=== PATIENT | female | born 1960 | race American Indian/Alaskan Native ===

== ENCOUNTER 2016-08-17 20:32 | Emergency (ER) | payer SELFPAY ==
[2016-08-17 23:46] LABS: Basophils % (Auto) 0.5 % (0.0-1.8); Eosinophils % (Auto) 0.3 % (0.0-4.3); Hematocrit 40.6 % (30.3-42.9); Mean Corpuscular HGB Conc 32 % (30-34); Mean Corpuscular Hemoglobin 27 pg (28-32); Mean Corpuscular Volume 84 fl (79-97); Platelet Count 197 K/mm3 (140-440); Red Blood Count 4.81 M/mm3 (3.65-5.03); Red Cell Distribution Width 16.3 % (13.2-15.2); White Blood Count 6.9 K/mm3 (4.5-11.0)
[2016-08-18 00:05] LABS: Anion Gap 22 mmol/L; BUN/Creatinine Ratio 13.33; Blood Urea Nitrogen 8 mg/dL (7-17); Calcium 9.2 mg/dL (8.4-10.2); Carbon Dioxide 21 mmol/L (22-30); Chloride 95.7 mmol/L (98-107); Glucose 106 mg/dL (65-100); Potassium 3.7 mmol/L (3.6-5.0); Sodium 135 mmol/L (137-145)
[2016-08-18 00:25] LABS: Bacteria,Urine 1+ /HPF (Negative); Bilirubin,Urine NEG (Negative); Blood,Urine MOD (Negative); Ketones,Urine TR mg/dL (Negative); Leukocyte Esterase,Urine NEG (Negative); Mucus,Urine 1+ /HPF; Nitrite,Urine NEG (Negative); Urobilinogen,Urine < 2.0 mg/dL (<2.0)
[2016-08-18] MEDS ORDERED: NORCO 5/325 PO ONE (02:03)
--- NOTE | 2016-08-18 02:04 | Emergency Department Report ---
ED Fall HPI - General Chief Complaint: Fall Stated Complaint: FALL/RT SIDE PAIN Time Seen by Provider: 08/18/16 01:55 Source: patient, family Mode of arrival: Wheelchair - History of Present Illness Initial Comments: This is a 55-year-old female who reports increased fatigue today. She states that as a baseline she has urgency and incontinence issues with urine. She states that she was trying to make it quickly to the toilet today. She was able to get down on the toilet and slipped off and struck her right knee hard. She didn't ask for family to bring her to the ED for further evaluation due to this. She does report fever at home as well. Occasional cough is reported as well just in no sore throat. She does have body aches. She describes her fatigue starting actually 2 days ago. Worse with activity. Improved with rest. Associated Symptoms: denies: headache, numbness, abdominal pain - Related Data Previous Rx's Medication Instructions Recorded Last Taken Type Aspirin [Aspirin BABY CHEW TAB] 81 mg PO QDAY #30 tab.chew 09/17/15 Unknown Rx Carvedilol [Coreg] 3.125 mg PO BID #60 tablet 09/17/15 Unknown Rx Lisinopril [Zestril TAB] 2.5 mg PO QDAY #30 tablet 09/17/15 Unknown Rx HYDROcodone/APAP 5-325 [[place] 2 each PO Q6HR PRN #30 tablet 08/18/16 Unknown Rx 5/325] Oseltamivir [Tamiflu] 75 mg PO BID #10 capsule 08/18/16 Unknown Rx Allergies Allergy/AdvReac Type Severity Reaction Status Date / Time No Known Allergies Allergy Verified 02/08/15 16:03 ED Review of Systems ROS: Stated complaint: FALL/RT SIDE PAIN Other details as noted in HPI Comment: All other systems reviewed and negative Constitutional: chills, fever, weakness Eyes: denies: eye pain, eye discharge, vision change ENT: denies: ear pain, throat pain Respiratory: cough. denies: shortness of breath, wheezing Cardiovascular: denies: chest pain, palpitations Endocrine: no symptoms reported Gastrointestinal: denies: abdominal pain, nausea, diarrhea Genitourinary: urgency. denies: dysuria, discharge Musculoskeletal: arthralgia (right knee). denies: back pain, joint swelling Skin: denies: rash, lesions Neurological: denies: headache, weakness, paresthesias Psychiatric: denies: anxiety, depression Hematological/Lymphatic: denies: easy bleeding, easy bruising ED Past Medical Hx - Past Medical History Previous Medical History?: Yes Hx Hypertension: Yes Hx Congestive Heart Failure: No Hx Diabetes: No Hx GERD: Yes Hx Headaches / Migraines: Yes Hx Asthma: No Hx COPD: No Hx HIV: No Additional medical history: ANEMIA,STOMACH ULCER,FIBROID,DIVERTICULITIS. Obesity - Surgical History Hx Open Heart Surgery: Yes (1972 coarctation of aorta) Hx Cholecystectomy: Yes Additional Surgical History: TUBAL LIGATION. TONSILLECTOMY - Social History Smoking Status: Never Smoker Substance Use Type: None - Medications Home Medications: Home Medications Medication Instructions Recorded Confirmed Last Taken Type Aspirin [Aspirin BABY CHEW TAB] 81 mg PO QDAY #30 tab.chew 09/17/15 Unknown Rx Carvedilol [Coreg] 3.125 mg PO BID #60 tablet 09/17/15 Unknown Rx Lisinopril [Zestril TAB] 2.5 mg PO QDAY #30 tablet 09/17/15 Unknown Rx HYDROcodone/APAP 5-325 [[place] 2 each PO Q6HR PRN #30 tablet 08/18/16 Unknown Rx 5/325] Oseltamivir [Tamiflu] 75 mg PO BID #10 capsule 08/18/16 Unknown Rx ED Physical Exam - General Limitations: No Limitations General appearance: alert, in distress (due to fatigue.) - Head Head exam: Present: atraumatic, normocephalic - Eye Eye exam: Present: normal appearance, EOMI. Absent: scleral icterus - ENT ENT exam: Present: normal exam, normal orophraynx, mucous membranes moist - Neck Neck exam: Present: normal inspection. Absent: tenderness, meningismus, lymphadenopathy - Respiratory Respiratory exam: Present: rales (bibasilarly with some end expiratory sounds as well.), decreased breath sounds (mild). Absent: respiratory distress - Cardiovascular Cardiovascular Exam: Present: normal rhythm, tachycardia. Absent: systolic murmur, diastolic murmur, rubs, gallop - GI/Abdominal GI/Abdominal exam: Present: soft, normal bowel sounds. Absent: tenderness, guarding, rebound - Extremities Exam Extremities exam: Present: other (right knee with mild tenderness in the anterior aspect just below the patella. No laxity is appreciated. Normal range of motion is noted. Equal distal pedal pulses bilaterally.). Absent: pedal edema, calf tenderness - Back Exam Back exam: Present: normal inspection - Neurological Exam Neurological exam: Present: alert, oriented X3, abnormal gait (antalgic gait due to right knee pain.) - Psychiatric Psychiatric exam: Present: normal affect, normal mood - Skin Skin exam: Present: warm, dry, intact, normal color. Absent: rash ED Course Vital Signs 08/17/16 08/18/16 08/18/16 22:00 01:09 01:10 Temperature 100.9 F H Pulse Rate 104 H Respiratory 20 Rate Blood Pressure 135/65 Blood Pressure 154/81 [Right] O2 Sat by Pulse 97 95 96 Oximetry 08/18/16 08/18/16 08/18/16 01:15 01:18 01:20 Temperature Pulse Rate 78 Respiratory 20 Rate Blood Pressure 128/71 128/71 Blood Pressure [Right] O2 Sat by Pulse 97 93 Oximetry 08/18/16 08/18/16 08/18/16 01:26 01:30 01:36 Temperature Pulse Rate Respiratory Rate Blood Pressure 128/71 151/82 151/82 Blood Pressure [Right] O2 Sat by Pulse 94 97 95 Oximetry 08/18/16 08/18/16 08/18/16 01:40 01:45 01:50 Temperature Pulse Rate Respiratory Rate Blood Pressure 151/82 158/78 158/78 Blood Pressure [Right] O2 Sat by Pulse 95 94 96 Oximetry 08/18/16 08/18/16 08/18/16 01:56 02:00 02:06 Temperature Pulse Rate Respiratory Rate Blood Pressure 151/82 150/75 150/75 Blood Pressure [Right] O2 Sat by Pulse 97 97 95 Oximetry 08/18/16 08/18/16 08/18/16 02:10 02:15 02:20 Temperature Pulse Rate Respiratory Rate Blood Pressure 150/75 145/79 145/79 Blood Pressure [Right] O2 Sat by Pulse 93 91 95 Oximetry 08/18/16 08/18/16 08/18/16 02:26 02:30 02:36 Temperature Pulse Rate Respiratory Rate Blood Pressure 150/75 144/81 144/81 Blood Pressure [Right] O2 Sat by Pulse 92 87 95 Oximetry 08/18/16 08/18/16 08/18/16 02:40 02:45 02:50 Temperature Pulse Rate Respiratory Rate Blood Pressure 144/81 145/85 145/85 Blood Pressure [Right] O2 Sat by Pulse 92 91 93 Oximetry 08/18/16 08/18/16 08/18/16 02:56 03:00 03:06 Temperature Pulse Rate 63 Respiratory 20 Rate Blood Pressure 145/79 145/79 Blood Pressure [Right] O2 Sat by Pulse 93 93 100 Oximetry - Reevaluation(s) Reevaluation #1: 08/18/16 07:04 2 issues. First issue regarding the knee. X-ray is negative for acute pathology. Presentation seems consistent with contusion. I do not expect sprain or strain is contributed to this. Patient given routine instructions regarding contused tissue. In regards to the fever and fatigue, labs were performed. The influenza swab did come back positive. This is what I anticipated. Patient may have a touch of influenza pneumonia as well. I did not obtain an x-ray given that her O2 saturation was very good. I do suspect viral much more likely than alternative etiology. I do believe that influenza is causing her weakness as well. I did encourage her to convalesce as well as push fluids and stay on top of antipyretics. ED Medical Decision Making - Lab Data Result diagrams: 08/17/16 22:51 08/17/16 22:51 Critical care attestation.: If time is entered above; I have spent that time in minutes in the direct care of this critically ill patient, excluding procedure time. ED Disposition Clinical Impression: Influenza Contusion, knee Qualifiers: Encounter type: initial encounter Laterality: right Qualified Code(s): S80.01XA - Contusion of right knee, initial encounter Disposition: DISCHARGED TO HOME OR SELFCARE Is pt being admited?: No Does the pt Need Aspirin: No Condition: Stable Instructions: Influenza (ED) Additional Instructions: Drink plenty of fluids. Rest. Prescriptions: HYDROcodone/APAP 5-325 [[place] 5/325] 2 each PO Q6HR PRN #30 tablet PRN Reason: Pain Oseltamivir [Tamiflu] 75 mg PO BID #10 capsule Referrals: PRIMARY CARE, [Primary Care Provider] - 3-5 Days Time of Disposition: 03:47
[2016-08-18 03:06] VITALS: BP 145/79
[2016-08-18] MEDS ORDERED: TAMIFLU PO ONE (03:45)
--- NOTE | 2016-08-18 07:50 | XRay Report ---
Right knee: Pain following fall. He is alert now he is on may be fecal matter colon to There are bilateral periarticular spurs. There is significant narrowing of the medial joint compartment. The joint is aligned. Articular margins are smooth. The bones are well-mineralized. No swelling or effusion. Impression: Degenerative changes. No acute findings.
== END 2016-08-18 04:01 | disposition home or self-care (01) ==
LOC: ED 20:32
DX: S80.01XA Contusion of right knee, initial encounter (principal); J11.1 Influenza due to unidentified influenza virus with other respiratory manifestations; I10 Essential (primary) hypertension; G43.909 Migraine, unspecified, not intractable, without status migrainosus; D64.9 Anemia, unspecified; K21.9 Gastro-esophageal reflux disease without esophagitis; E66.9 Obesity, unspecified; Z79.82 Long term (current) use of aspirin; W18.30XA Fall on same level, unspecified, initial encounter; Y93.89 Activity, other specified; Y99.8 Other external cause status; Y92.002 Bathroom of unspecified non-institutional (private) residence as the place of occurrence of the external cause
CPT/HCPCS: 36415; 80048; 81001; 84703; 85025; 87040; 87400; 99284

== ENCOUNTER 2016-09-03 17:38 | Inpatient (IN) | payer SELFPAY ==
[2016-09-03] MEDS ORDERED: TYLENOL PO ONE (18:19)
[2016-09-03 19:02] LABS: Bacteria,Urine 1+ /HPF (Negative); Bilirubin,Urine NEG (Negative); Blood,Urine MOD (Negative); Ketones,Urine TR mg/dL (Negative); Leukocyte Esterase,Urine LG (Negative); Mucus,Urine 1+ /HPF; Nitrite,Urine NEG (Negative); WBC,Urine > 182.0 /HPF (0.0-6.0)
[2016-09-03 19:07] LABS: Basophils % (Auto) 0.6 % (0.0-1.8); Eosinophils % (Auto) 0.2 % (0.0-4.3); Hematocrit 39.7 % (30.3-42.9); Hemoglobin 12.6 gm/dl (10.1-14.3); Mean Corpuscular HGB Conc 32 % (30-34); Mean Corpuscular Hemoglobin 27 pg (28-32); Mean Corpuscular Volume 85 fl (79-97); Platelet Count 310 K/mm3 (140-440); Red Blood Count 4.66 M/mm3 (3.65-5.03); Red Cell Distribution Width 15.8 % (13.2-15.2)
[2016-09-03 19:28] LABS: Anion Gap 21 mmol/L; Blood Urea Nitrogen 7 mg/dL (7-17); Calcium 9.3 mg/dL (8.4-10.2); Carbon Dioxide 20 mmol/L (22-30); Chloride 100.6 mmol/L (98-107); Glucose 146 mg/dL (65-100); Potassium 3.9 mmol/L (3.6-5.0); Sodium 138 mmol/L (137-145)
[2016-09-03] MEDS ORDERED: SUBLIMAZE IV ONE ×2 (20:44→21:00)
[2016-09-03] MEDS ORDERED: ZOFRAN IV ONE (20:44)
[2016-09-03] MEDS ORDERED: NACL 0.9% 1000 ML 1,000 ML IV ONE (20:44)
[2016-09-03] MEDS ORDERED: ROCEPHIN/NS 1 GM/50 ML 1 GM/50 ML BAG IV ONE (20:44)
[2016-09-03] MEDS ORDERED: BABY ASPIRIN PO ONE (20:50)
--- NOTE | 2016-09-03 20:50 | Emergency Department Report ---
HPI - General Chief Complaint: Chest Pain Time Seen by Provider: 09/03/16 19:56 - HPI HPI: The patient is a 55-year-old female with a history of CHF, who presents for evaluation of chest pain. The patient reports 1 day of constant left-sided chest pain, pressure-like in quality, currently 10/10 in severity, and associated with suprapubic abdominal pain of same duration. She states that her abdominal pain has been moderate to severe, cramping in quality, also constant the past 2 days, and associated with dysuria and multiple episodes of nonbilious vomiting. The patient denies fever, cough, dyspnea, hemoptysis, diarrhea, present discharge, vaginal bleeding, unilateral leg swelling, hormone use, recent immobilization, history of DVT or PE, recent cancer. ED Past Medical Hx - Past Medical History Previous Medical History?: Yes Hx Hypertension: Yes Hx Congestive Heart Failure: No Hx Diabetes: No Hx GERD: Yes Hx Headaches / Migraines: Yes Hx Asthma: No Hx COPD: No Hx HIV: No Additional medical history: ANEMIA,STOMACH ULCER,FIBROID,DIVERTICULITIS. Obesity - Surgical History Past Surgical History?: Yes Hx Open Heart Surgery: Yes (1972 coarctation of aorta) Hx Cholecystectomy: Yes Additional Surgical History: TUBAL LIGATION. TONSILLECTOMY - Social History Smoking Status: Never Smoker Substance Use Type: None - Medications Home Medications: Home Medications Medication Instructions Recorded Confirmed Last Taken Type Aspirin [Aspirin BABY CHEW TAB] 81 mg PO QDAY #30 tab.chew 09/17/15 Unknown Rx Carvedilol [Coreg] 3.125 mg PO BID #60 tablet 09/17/15 Unknown Rx Lisinopril [Zestril TAB] 2.5 mg PO QDAY #30 tablet 09/17/15 Unknown Rx HYDROcodone/APAP 5-325 [[place] 2 each PO Q6HR PRN #30 tablet 08/18/16 Unknown Rx 5/325] Oseltamivir [Tamiflu] 75 mg PO BID #10 capsule 08/18/16 Unknown Rx ED Review of Systems ROS: Stated complaint: CHEST PAIN/VOMITING/CHILLS Other details as noted in HPI Constitutional: denies: fever ENT: denies: throat or neck pain Respiratory: denies: cough, shortness of breath Cardiovascular: reports chest pain Endocrine: denies unexplained weight loss or gain Gastrointestinal: reports abdominal pain, nausea Genitourinary: denies: dysuria Musculoskeletal: denies: leg swelling Skin: denies: rash Neurological: denies: headache Hematological/Lymphatic: denies: easy bleeding or easy bruising Psych: denies sadness or hopelessness Physical Exam - Physical Exam Vital Signs: Vital Signs 09/03/16 09/03/16 09/03/16 18:04 20:00 20:08 Temperature 102.3 F H Pulse Rate 125 H 98 H Respiratory 24 23 16 Rate Blood Pressure 130/57 O2 Sat by Pulse 95 97 Oximetry Physical Exam: General: well-nourished, well-developed, no acute distress Head: Normocephalic, atraumatic Eyes: normal sclera ENT: Mucous membranes are pale and dry Neck: No neck stiffness, no cervical adenopathy Respiratory: Breath sounds equal bilaterally, no wheezing, rales, or rhonchi Cardio: S1 and S2 present, no murmurs, rubs, gallops, capillary refill is delayed Abdomen: Normoactive bowel sounds, soft abdomen, suprapubic tenderness to palpation present, no rigidity, no guarding or rebound tenderness Chest WALL/Back: No tenderness to palpation of the chest wall, no CVA tenderness with percussion Musc: No pitting edema Skin: No rash Neuro: no facial drooping, normal speech Psych: Normal affect ED Course Vital Signs 09/03/16 09/03/16 09/03/16 18:04 20:00 20:08 Temperature 102.3 F H Pulse Rate 125 H 98 H Respiratory 24 23 16 Rate Blood Pressure 130/57 O2 Sat by Pulse 95 97 Oximetry ED Medical Decision Making - Lab Data Result diagrams: 09/03/16 18:38 09/03/16 18:38 - Medical Decision Making The patient was seen and examined by myself. The patient is placed on a psychologist counseling and continuous pulse ox. On initial evaluation, the patient was found to be in no distress, although with elevated temperature of 102. The patient is given Tylenol for her fever and IV fentanyl for her pain. EKG was negative for findings suggestive of acute cardiac infarct. The patient is given an aspirin and a nitroglycerin tablet. Labs and imaging are obtained. Chest x-ray is negative for pneumothorax, focal consolidation, pulmonary vascular congestion, pleural effusion, or other obvious acute cardiopulmonary disease process. Lab results reveal significantly elevated urine WBC 182, positive leukocyte esterase, and elevated serum WBC of 14. Troponin level was negative. As the patient is febrile with WBC of 14, and source of infection, the patient meets criteria for sepsis. The patient is given IV Rocephin for treatment of her urosepsis. The patient was reevaluated and reported that their symptoms were improved. As the patient is septic she'll be admitted for continued IV antibiotic and close monitoring, and also for serial troponins and potential cardiology evaluation of her chest pain. The on-call hospitalist service was contacted. They agreed to admit the patient for further treatment and close monitoring. The ED admit order was placed. The patient was admitted in guarded condition. Critical care attestation.: If time is entered above; I have spent that time in minutes in the direct care of this critically ill patient, excluding procedure time. ED Disposition Clinical Impression: Acute chest pain, Acute UTI (urinary tract infection), Dehydration, Acute suprapubic pain Sepsis Qualifiers: Sepsis type: sepsis due to unspecified organism Qualified Code(s): A41.9 - Sepsis, unspecified organism Disposition: OP ADMITTED IP TO THIS HOSP Is pt being admited?: Yes Does the pt Need Aspirin: Yes Condition: Serious Referrals: PRIMARY CARE, [Primary Care Provider] - 3-5 Days Time of Disposition: 20:48
[2016-09-03] MEDS ORDERED: PROTONIX IV ONE (21:45)
[2016-09-03] MEDS ORDERED: ZOFRAN IV PRN (22:53)
[2016-09-03] MEDS ORDERED: DULCOLAX PR PRN (22:53)
[2016-09-03] MEDS ORDERED: MILK OF MAGNESIA PO PRN (22:53)
--- NOTE | 2016-09-03 23:43 | History and Physical Report ---
History of Present Illness Date of examination: 09/03/16 Chief complaint: Abdominal pain chest pain and burning urination for 2 days History of present illness: Mrs. Moon is a 55-year-old AA female with a history of HTN, open heart surgery for coarctation of the aorta , presents for evaluation of chest pain. The patient reports constant left-sided chest pain, pressure-like in quality, currently 10/10 in severity, and associated with suprapubic abdominal pain of same duration. She states that her abdominal pain has been moderate to severe, cramping in quality, also constant the past 2 days, and associated with dysuria and multiple episodes of nonbilious vomiting. The patient also c/o of fever and chills, but denies cough, dyspnea, hemoptysis. She was noted to have significant urinary tract infection along with the fever and tachycardia and is admitted for possible urosepsis Past History Past Medical History: hypertension Past Surgical History: tonsillectomy, Other (coarctation of aorta, tubal ligation) Social history: no significant social history Family history: diabetes, hypertension Medications and Allergies Allergies Allergy/AdvReac Type Severity Reaction Status Date / Time No Known Allergies Allergy Verified 02/08/15 16:03 Home Medications Medication Instructions Recorded Confirmed Last Taken Type Aspirin [Aspirin BABY CHEW TAB] 81 mg PO QDAY #30 tab.chew 09/17/15 Unknown Rx Carvedilol [Coreg] 3.125 mg PO BID #60 tablet 09/17/15 Unknown Rx Lisinopril [Zestril TAB] 2.5 mg PO QDAY #30 tablet 09/17/15 Unknown Rx HYDROcodone/APAP 5-325 [[place] 2 each PO Q6HR PRN #30 tablet 08/18/16 Unknown Rx 5/325] Oseltamivir [Tamiflu] 75 mg PO BID #10 capsule 08/18/16 Unknown Rx Active Meds: Active Medications Acetaminophen (Tylenol) 650 mg PO Q4H PRN PRN Reason: Pain MILD(1-3)/Fever >100.5/POLLARD Acetaminophen/Hydrocodone Bitart ([place] 5/325) 1 each PO Q6H PRN PRN Reason: Pain, Moderate (4-6) Bisacodyl (Dulcolax) 10 mg [place] QDAY PRN PRN Reason: Constipation unrelieved by MOM Carvedilol (Coreg) 3.125 mg PO BID [facility] Heparin Sodium (Porcine) (Heparin) 5,000 unit SUB-Q Q8HR [facility] Ceftriaxone Sodium (Rocephin/Ns 1 Gm/50 Ml) 1 gm in 50 mls @ 100 mls/hr IV Q24HR [place] PRN Reason: Protocol Lisinopril (Zestril) 2.5 mg PO QDAY [facility] Magnesium Hydroxide (Milk Of Magnesia) 30 ml PO Q4H PRN PRN Reason: Constipation Ondansetron HCl (Zofran) 4 mg IV Q8H PRN PRN Reason: N/V unrelieved by Reglan Pantoprazole Sodium (Protonix) 40 mg PO DAILY [facility] Review of Systems Constitutional: fever, chills, no weight loss, no fatigue, no weakness Ears, nose, mouth and throat: no ear pain, no ear discharge, no sore throat, no headache Cardiovascular: chest pain (intermittent and sharp but doesn't aching pain, localized nonexertional), high blood pressure, no orthopnea, no palpitations, no syncope, no shortness of breath Respiratory: no cough, no shortness of breath Gastrointestinal: abdominal pain (in the mid and lower abdomen), vomiting, no melena Genitourinary Female: dysuria, urinary frequency Rectal: no pain Musculoskeletal: no neck pain Integumentary: no rash Neurological: no seizures, no syncope, no headaches Psychiatric: no anxiety, no depression Endocrine: no excessive thirst, no polyuria, no nocturia Exam - Constitutional Vitals: Temp Pulse Resp BP Pulse Ox 102.3 F H 98 H 21 156/65 98 09/03/16 18:04 09/03/16 23:01 09/03/16 23:01 09/03/16 23:01 09/03/16 23:01 General appearance: Present: no acute distress, well-nourished, obese - EENT Eyes: Present: PERRL, EOM intact ENT: hearing intact, clear oral mucosa, no thrush - Neck Neck: Present: supple, normal ROM. Absent: masses or JVD - Respiratory Respiratory effort: normal Respiratory: bilateral: CTA, diminished - Cardiovascular Rhythm: regular Heart Sounds: Present: S1 & S2 - Extremities Extremities: No edema - Abdominal General gastrointestinal: Present: soft, tender (in the lower abdomen no guarding or rigidity), non-distended. Absent: rigid, hepatomegaly, splenomegaly - Rectal Rectal Exam: deferred - Integumentary Integumentary: Present: clear - Musculoskeletal Musculoskeletal: strength equal bilaterally - Psychiatric Psychiatric: appropriate mood/affect - Neurologic Neurologic: no focal deficits, moves all extremities Results - Labs CBC & Chem 7: 09/03/16 18:38 09/03/16 18:38 Labs: Abnormal lab results 09/03/16 09/03/16 09/03/16 Range/Units 18:15 18:38 18:38 WBC 14.0 H (4.5-11.0) K/mm3 MCH 27 L (28-32) pg RDW 15.8 H (13.2-15.2) % Lymph % (Auto) 7.1 L (13.4-35.0) % [place] % (Auto) 9.8 H (0.0-7.3) % Lymph # 1.0 L (1.2-5.4) K/mm3 [place] # 1.4 H (0.0-0.8) K/mm3 Seg Neutrophils % 82.3 H (40.0-70.0) % Seg Neutrophils # 11.6 H (1.8-7.7) K/mm3 Carbon Dioxide 20 L (22-30) mmol/L Glucose 146 H (65-100) mg/dL Urine WBC (Auto) > 182.0 H (0.0-6.0) /HPF Assessment and Plan - Patient Problems (1) Sepsis Current Visit: Yes Status: Acute Qualifiers: Sepsis type: sepsis due to unspecified organism Qualified Code(s): A41.9 - Sepsis, unspecified organism Plan to address problem: Probable sepsis based on leukocytosis or fever tachycardia and UTI with microhematuria Urine and blood cultures were obtained and patient was started on antibiotic in the emergency department Will continue ceftriaxone until cultures results are obtained Lactic acid level was normal (2) Hyperglycemia Current Visit: Yes Status: Acute Plan to address problem: Monitor blood sugars for now (3) Acute UTI (urinary tract infection) Current Visit: Yes Status: Acute Plan to address problem: Ceftriaxone intravenously Await urine culture results (4) Acute chest pain Current Visit: Yes Status: Acute Plan to address problem: EKG shows sinus rhythm with no acute changes Troponin 2 sets were normal Cardiology consult (5) Obesity, Class III, BMI 40-49.9 (morbid obesity) Current Visit: No Status: Acute Plan to address problem: Nutrition counseling and weight loss (6) Hypertension Current Visit: No Status: Chronic Qualifiers: Hypertension type: essential hypertension Qualified Code(s): I10 - Essential (primary) hypertension Plan to address problem: Continue home medications
[2016-09-04] MEDS: TYLENOL PO PRN ×2 (00:13→23:00)
[2016-09-04 06:02] LABS: Basophils % (Auto) 0.3 % (0.0-1.8); Hematocrit 36.4 % (30.3-42.9); Hemoglobin 11.4 gm/dl (10.1-14.3); Mean Corpuscular HGB Conc 31 % (30-34); Mean Corpuscular Hemoglobin 27 pg (28-32); Mean Corpuscular Volume 86 fl (79-97); Platelet Count 270 K/mm3 (140-440); Red Blood Count 4.22 M/mm3 (3.65-5.03); Red Cell Distribution Width 15.8 % (13.2-15.2); White Blood Count 14.9 K/mm3 (4.5-11.0)
[2016-09-04] MEDS: HEPARIN SUB-Q SCH ×3 (06:04→21:58)
[2016-09-04 06:16] LABS: Blood Urea Nitrogen 7 mg/dL (7-17); Calcium 8.8 mg/dL (8.4-10.2); Carbon Dioxide 23 mmol/L (22-30); Glucose 132 mg/dL (65-100); Sodium 143 mmol/L (137-145)
[2016-09-04 06:17] LABS: Anion Gap 18 mmol/L; Chloride 105.3 mmol/L (98-107); Potassium 3.7 mmol/L (3.6-5.0)
--- NOTE | 2016-09-04 09:29 | XRay Report ---
Chest 2 views: Compared to 09/14/15. History: Coughing up brown sputum chest pain. Findings: Normal cardiomediastinal silhouette. Trachea is midline. No consolidation, pneumothorax or pleural effusion. Impression: No acute cardiopulmonary findings.
--- NOTE | 2016-09-04 09:43 | Consultation ---
History of Present Illness Consult date: 09/04/16 History of present illness: Mrs. Moon is a 55-year-old AA female with a history of HTN, open heart surgery for coarctation of the aorta , presents for evaluation of chest pain. The patient reports constant left-sided chest pain, pressure-like in quality, coming and going and associated with suprapubic abdominal pain of same duration. Patient denies any SOB, peripheral edema, orthopnea, pnd, palpitations , dizziness or syncope. Past History Past Medical History: hypertension Past Surgical History: tonsillectomy, Other (coarctation of aorta, tubal ligation) Social history: no significant social history Family history: diabetes, hypertension Medications and Allergies Allergies Allergy/AdvReac Type Severity Reaction Status Date / Time No Known Allergies Allergy Verified 02/08/15 16:03 Home Medications Medication Instructions Recorded Confirmed Last Taken Type Aspirin [Aspirin BABY CHEW TAB] 81 mg PO QDAY #30 tab.chew 09/17/15 Unknown Rx Carvedilol [Coreg] 3.125 mg PO BID #60 tablet 09/17/15 Unknown Rx Lisinopril [Zestril TAB] 2.5 mg PO QDAY #30 tablet 09/17/15 Unknown Rx HYDROcodone/APAP 5-325 [[place] 2 each PO Q6HR PRN #30 tablet 08/18/16 Unknown Rx 5/325] Oseltamivir [Tamiflu] 75 mg PO BID #10 capsule 08/18/16 Unknown Rx Ferrous Sulfate [Feosol] 325 mg PO QDAY 09/04/16 09/04/16 Unknown History Active Meds: Active Medications Acetaminophen (Tylenol) 650 mg PO Q4H PRN PRN Reason: Pain MILD(1-3)/Fever >100.5/POLLARD Last Admin: 09/04/16 00:13 Dose: 650 mg Acetaminophen/Hydrocodone Bitart ([place] 5/325) 1 each PO Q6H PRN PRN Reason: Pain, Moderate (4-6) Bisacodyl (Dulcolax) 10 mg [place] QDAY PRN PRN Reason: Constipation unrelieved by MOM Carvedilol (Coreg) 3.125 mg PO BID ARNOLD Heparin Sodium (Porcine) (Heparin) 5,000 unit SUB-Q Q8HR ARNOLD Last Admin: 09/04/16 06:04 Dose: 5,000 unit Ceftriaxone Sodium (Rocephin/Ns 1 Gm/50 Ml) 1 gm in 50 mls @ 100 mls/hr IV Q24HR ARNOLD PRN Reason: Protocol Lisinopril (Zestril) 2.5 mg PO QDAY [facility] Magnesium Hydroxide (Milk Of Magnesia) 30 ml PO Q4H PRN PRN Reason: Constipation Ondansetron HCl (Zofran) 4 mg IV Q8H PRN PRN Reason: N/V unrelieved by Chani Last Admin: 09/04/16 00:14 Dose: 4 mg Pantoprazole Sodium (Protonix) 40 mg PO DAILY [facility] Physical Examination Vital Signs Temp Pulse Resp BP Pulse Ox 102.3 F H 125 H 24 130/57 95 09/03/16 18:04 09/03/16 18:04 09/03/16 18:04 09/03/16 18:04 09/03/16 18:04 Results 09/04/16 05:26 09/04/16 05:26 CBC 09/04/16 Range/Units 05:26 WBC 14.9 H (4.5-11.0) K/mm3 RBC 4.22 (3.65-5.03) M/mm3 Hgb 11.4 (10.1-14.3) gm/dl Hct 36.4 (30.3-42.9) % Plt Count 270 (140-440) K/mm3 Lymph # 1.0 L (1.2-5.4) K/mm3 Leon # 1.7 H (0.0-0.8) K/mm3 Eos # 0.0 (0.0-0.4) K/mm3 Baso # 0.0 (0.0-0.1) K/mm3 Comprehensive Metabolic Panel 09/04/16 Range/Units 05:26 Sodium 143 (137-145) mmol/L Potassium 3.7 (3.6-5.0) mmol/L Chloride 105.3 (98-107) mmol/L Carbon Dioxide 23 (22-30) mmol/L BUN 7 (7-17) mg/dL Creatinine 0.7 (0.7-1.2) mg/dL Glucose 132 H (65-100) mg/dL Calcium 8.8 (8.4-10.2) mg/dL Assessment and Plan (1) Sepsis - Patient has leukocytosis and fever with tachycardia. UTI present. Urine and blood cultures pending. On abx. Management per primary. (2) Acute UTI (urinary tract infection) - on abx. Management per primary (3) Acute chest pain - atypical symptoms. CV risk factors include HTN. EKG shows normal sinus rhythm with nonspecific STTW changes. troponin negative. Check echo. Recommend stress test when infection resolved. (4) Hypertension - continue current therapy
[2016-09-04] MEDS: ZESTRIL PO SCH (09:59)
[2016-09-04] MEDS: PROTONIX PO SCH (10:01)
[2016-09-04] MEDS: COREG PO SCH ×2 (10:01→23:01)
[2016-09-04] MEDS: ROCEPHIN/NS 1 GM/50 ML 1 GM/50 ML BAG IV SCH (10:03)
--- NOTE | 2016-09-04 11:25 | Progress Note ---
Assessment and Plan Assessment and plan: Sepsis. We will continue to follow urine and blood cultures. Trend lactic acid levels. Continue IV antibiotics. UTI. Continuing IV antibiotics and follow-up urine cultures. Acute chest pain. Continue to follow cardiac isoenzymes. Cardiology following. Cardiology recommended stress test once sepsis has resolved. Follow -up echocardiogram. Obesity. Continue nutrition counseling and weight loss. Hypertension. Resume antihypertensive medications. History Interval history: No new issues overnight. Hospitalist Physical - Constitutional Vitals: Temp Pulse Resp BP Pulse Ox 98.5 F 72 18 125/58 100 09/04/16 08:02 09/04/16 08:02 09/04/16 08:02 09/04/16 08:02 09/04/16 08:02 General appearance: Present: no acute distress, well-nourished, obese - EENT Eyes: Present: PERRL, EOM intact ENT: hearing intact, clear oral mucosa, dentition normal - Neck Neck: Present: supple, normal ROM - Respiratory Respiratory effort: normal Respiratory: bilateral: CTA - Cardiovascular Rhythm: regular Heart Sounds: Present: S1 & S2. Absent: gallop, rub - Extremities Extremities: no ischemia, No edema, Full ROM - Abdominal General gastrointestinal: soft, non-tender, non-distended, normal bowel sounds - Integumentary Integumentary: Present: clear, warm, dry - Neurologic Neurologic: CNII-XII intact, moves all extremities Results - Labs CBC & Chem 7: 09/04/16 05:26 09/04/16 05:26 Labs: Laboratory Last Values WBC 14.9 K/mm3 (4.5-11.0) H 09/04/16 05:26 RBC 4.22 M/mm3 (3.65-5.03) 09/04/16 05:26 Hgb 11.4 gm/dl (10.1-14.3) 09/04/16 05:26 Hct 36.4 % (30.3-42.9) 09/04/16 05:26 MCV 86 fl (79-97) 09/04/16 05:26 MCH 27 pg (28-32) L 09/04/16 05:26 MCHC 31 % (30-34) 09/04/16 05:26 RDW 15.8 % (13.2-15.2) H 09/04/16 05:26 Plt Count 270 K/mm3 (140-440) 09/04/16 05:26 Lymph % (Auto) 6.7 % (13.4-35.0) L 09/04/16 05:26 [place] % (Auto) 11.5 % (0.0-7.3) H 09/04/16 05:26 Eos % (Auto) 0.0 % (0.0-4.3) 09/04/16 05:26 Baso % (Auto) 0.3 % (0.0-1.8) 09/04/16 05:26 Lymph # 1.0 K/mm3 (1.2-5.4) L 09/04/16 05:26 [place] # 1.7 K/mm3 (0.0-0.8) H 09/04/16 05:26 Eos # 0.0 K/mm3 (0.0-0.4) 09/04/16 05:26 Baso # 0.0 K/mm3 (0.0-0.1) 09/04/16 05:26 Seg Neutrophils % 81.5 % (40.0-70.0) H 09/04/16 05:26 Seg Neutrophils # 12.1 K/mm3 (1.8-7.7) H 09/04/16 05:26 Sodium 143 mmol/L (137-145) 09/04/16 05:26 Potassium 3.7 mmol/L (3.6-5.0) 09/04/16 05:26 Chloride 105.3 mmol/L (98-107) 09/04/16 05:26 Carbon Dioxide 23 mmol/L (22-30) 09/04/16 05:26 Anion Gap 18 mmol/L 09/04/16 05:26 BUN 7 mg/dL (7-17) 09/04/16 05:26 Creatinine 0.7 mg/dL (0.7-1.2) 09/04/16 05:26 Estimated GFR > 60 ml/min 09/04/16 05:26 BUN/Creatinine Ratio 10.00 % 09/04/16 05:26 Glucose 132 mg/dL (65-100) H 09/04/16 05:26 Lactic Acid 0.9 mmol/L (0.7-2.0) 09/03/16 21:16 Calcium 8.8 mg/dL (8.4-10.2) 09/04/16 05:26 Troponin T < 0.010 ng/mL (0.00-0.029) 09/04/16 00:36 Urine Color Yellow (Yellow) 09/03/16 18:15 Urine Turbidity Cloudy (Clear) 09/03/16 18:15 Urine pH 7.0 (5.0-7.0) 09/03/16 18:15 Ur Specific [place] 1.014 (1.003-1.030) 09/03/16 18:15 Urine Protein 100 mg/dl mg/dL (Negative) 09/03/16 18:15 Urine Glucose (UA) Neg mg/dL (Negative) 09/03/16 18:15 Urine Ketones Tr mg/dL (Negative) 09/03/16 18:15 Urine Blood Mod (Negative) 09/03/16 18:15 Urine Nitrite Neg (Negative) 09/03/16 18:15 Urine Bilirubin Neg (Negative) 09/03/16 18:15 Urine Urobilinogen 2.0 mg/dL (<2.0) 09/03/16 18:15 Ur Leukocyte Esterase Lg (Negative) 09/03/16 18:15 Urine WBC (Auto) > 182.0 /HPF (0.0-6.0) H 09/03/16 18:15 Urine RBC (Auto) 42.0 /HPF (0.0-6.0) 09/03/16 18:15 U Epithel Cells (Auto) 3.0 /HPF (0-13.0) 09/03/16 18:15 Urine Bacteria (Auto) 1+ /HPF (Negative) 09/03/16 18:15 Urine WBC Clumps 3+ /HPF 09/03/16 18:15 Urine Mucus 1+ /HPF 09/03/16 18:15
[2016-09-05] MEDS: HEPARIN SUB-Q SCH ×3 (06:08→22:09)
--- NOTE | 2016-09-05 08:21 | Progress Note ---
Assessment and Plan (1) Sepsis - Patient has leukocytosis and fever with tachycardia. UTI present. Urine and blood cultures pending. On abx. Management per primary. (2) Acute UTI (urinary tract infection) - on abx. Management per primary (3) Acute chest pain - atypical symptoms. CV risk factors include HTN. EKG shows normal sinus rhythm with nonspecific STTW changes. troponin negative. Check echo. Recommend stress test tomorrow. (4) Hypertension - continue current therapy Subjective Date of service: 09/05/16 Interval history: No acute events. Resting comfortably. No chest pain or SOB. Objective Vital Signs Temp Pulse Pulse Resp BP BP Pulse Ox 09/05/16 05:34 98 F 59 L 18 111/68 94 09/05/16 03:00 70 09/05/16 00:35 98.6 F 88 20 110/68 94 09/04/16 23:01 95 H 116/55 09/04/16 22:54 100 09/04/16 22:00 100 H 18 09/04/16 20:01 100 F H 92 H 18 104/46 96 09/04/16 19:00 100 H 09/04/16 16:06 98 F 75 18 142/65 96 09/04/16 12:07 98.4 F 80 18 130/68 97 09/04/16 11:42 82 09/04/16 11:25 100 09/04/16 10:00 72 18 98
--- NOTE | 2016-09-05 10:15 | Progress Note ---
Assessment and Plan Assessment and plan: Sepsis. We will continue to follow urine and blood cultures. Trend lactic acid levels. Continue IV antibiotics. UTI. Continuing IV antibiotics and follow-up urine cultures. Acute chest pain. Continue to follow cardiac isoenzymes. Cardiology following. Stress test in a.m. Follow-up echocardiogram. Obesity. Continue nutrition counseling and weight loss. Hypertension. Resume antihypertensive medications. History Interval history: No new issues overnight. Hospitalist Physical - Constitutional Vitals: Temp Pulse Resp BP Pulse Ox 98 F 77 18 111/68 94 09/05/16 05:34 09/05/16 08:45 09/05/16 05:34 09/05/16 05:34 09/05/16 08:26 General appearance: Present: no acute distress, well-nourished, obese - EENT Eyes: Present: PERRL, EOM intact ENT: hearing intact, clear oral mucosa, dentition normal - Neck Neck: Present: supple, normal ROM - Respiratory Respiratory effort: normal Respiratory: bilateral: CTA - Cardiovascular Rhythm: regular Heart Sounds: Present: S1 & S2. Absent: gallop, rub - Extremities Extremities: no ischemia, No edema, Full ROM - Abdominal General gastrointestinal: soft, non-tender, non-distended, normal bowel sounds - Integumentary Integumentary: Present: clear, warm, dry - Neurologic Neurologic: CNII-XII intact, moves all extremities Results - Labs CBC & Chem 7: 09/04/16 05:26 09/04/16 05:26 Labs: Laboratory Last Values WBC 14.9 K/mm3 (4.5-11.0) H 09/04/16 05:26 RBC 4.22 M/mm3 (3.65-5.03) 09/04/16 05:26 Hgb 11.4 gm/dl (10.1-14.3) 09/04/16 05:26 Hct 36.4 % (30.3-42.9) 09/04/16 05:26 MCV 86 fl (79-97) 09/04/16 05:26 MCH 27 pg (28-32) L 09/04/16 05:26 MCHC 31 % (30-34) 09/04/16 05:26 RDW 15.8 % (13.2-15.2) H 09/04/16 05:26 Plt Count 270 K/mm3 (140-440) 09/04/16 05:26 Lymph % (Auto) 6.7 % (13.4-35.0) L 09/04/16 05:26 [place] % (Auto) 11.5 % (0.0-7.3) H 09/04/16 05:26 Eos % (Auto) 0.0 % (0.0-4.3) 09/04/16 05:26 Baso % (Auto) 0.3 % (0.0-1.8) 09/04/16 05:26 Lymph # 1.0 K/mm3 (1.2-5.4) L 09/04/16 05:26 [place] # 1.7 K/mm3 (0.0-0.8) H 09/04/16 05:26 Eos # 0.0 K/mm3 (0.0-0.4) 09/04/16 05:26 Baso # 0.0 K/mm3 (0.0-0.1) 09/04/16 05:26 Seg Neutrophils % 81.5 % (40.0-70.0) H 09/04/16 05:26 Seg Neutrophils # 12.1 K/mm3 (1.8-7.7) H 09/04/16 05:26 Sodium 143 mmol/L (137-145) 09/04/16 05:26 Potassium 3.7 mmol/L (3.6-5.0) 09/04/16 05:26 Chloride 105.3 mmol/L (98-107) 09/04/16 05:26 Carbon Dioxide 23 mmol/L (22-30) 09/04/16 05:26 Anion Gap 18 mmol/L 09/04/16 05:26 BUN 7 mg/dL (7-17) 09/04/16 05:26 Creatinine 0.7 mg/dL (0.7-1.2) 09/04/16 05:26 Estimated GFR > 60 ml/min 09/04/16 05:26 BUN/Creatinine Ratio 10.00 % 09/04/16 05:26 Glucose 132 mg/dL (65-100) H 09/04/16 05:26 Lactic Acid 0.9 mmol/L (0.7-2.0) 09/03/16 21:16 Calcium 8.8 mg/dL (8.4-10.2) 09/04/16 05:26 Troponin T < 0.010 ng/mL (0.00-0.029) 09/04/16 00:36 Urine Color Yellow (Yellow) 09/03/16 18:15 Urine Turbidity Cloudy (Clear) 09/03/16 18:15 Urine pH 7.0 (5.0-7.0) 09/03/16 18:15 Ur Specific [place] 1.014 (1.003-1.030) 09/03/16 18:15 Urine Protein 100 mg/dl mg/dL (Negative) 09/03/16 18:15 Urine Glucose (UA) Neg mg/dL (Negative) 09/03/16 18:15 Urine Ketones Tr mg/dL (Negative) 09/03/16 18:15 Urine Blood Mod (Negative) 09/03/16 18:15 Urine Nitrite Neg (Negative) 09/03/16 18:15 Urine Bilirubin Neg (Negative) 09/03/16 18:15 Urine Urobilinogen 2.0 mg/dL (<2.0) 09/03/16 18:15 Ur Leukocyte Esterase Lg (Negative) 09/03/16 18:15 Urine WBC (Auto) > 182.0 /HPF (0.0-6.0) H 09/03/16 18:15 Urine RBC (Auto) 42.0 /HPF (0.0-6.0) 09/03/16 18:15 U Epithel Cells (Auto) 3.0 /HPF (0-13.0) 09/03/16 18:15 Urine Bacteria (Auto) 1+ /HPF (Negative) 09/03/16 18:15 Urine WBC Clumps 3+ /HPF 09/03/16 18:15 Urine Mucus 1+ /HPF 09/03/16 18:15
[2016-09-05] MEDS: ROCEPHIN/NS 1 GM/50 ML 1 GM/50 ML BAG IV SCH (10:27)
[2016-09-05] MEDS: PROTONIX PO SCH (10:28)
[2016-09-05] MEDS: COREG PO SCH ×2 (10:28→22:09)
[2016-09-05] MEDS: ZESTRIL PO SCH (10:28)
[2016-09-05] MEDS: NORCO 5/325 PO PRN (22:10)
[2016-09-06] MEDS: TYLENOL PO PRN (01:24)
[2016-09-06] MEDS: HEPARIN SUB-Q SCH ×3 (06:00→22:38)
[2016-09-06 06:19] LABS: Hematocrit 33.8 % (30.3-42.9); Hemoglobin 10.6 gm/dl (10.1-14.3); Mean Corpuscular HGB Conc 32 % (30-34); Mean Corpuscular Hemoglobin 27 pg (28-32); Mean Corpuscular Volume 86 fl (79-97); Platelet Count 220 K/mm3 (140-440); Red Blood Count 3.92 M/mm3 (3.65-5.03); Red Cell Distribution Width 15.2 % (13.2-15.2); White Blood Count 5.4 K/mm3 (4.5-11.0)
[2016-09-06 07:10] LABS: Anion Gap 14 mmol/L; BUN/Creatinine Ratio 13.33; Blood Urea Nitrogen 8 mg/dL (7-17); Carbon Dioxide 27 mmol/L (22-30); Chloride 102.7 mmol/L (98-107); Glucose 99 mg/dL (65-100); Potassium 3.9 mmol/L (3.6-5.0); Sodium 140 mmol/L (137-145)
[2016-09-06] MEDS ORDERED: LEXISCAN IV ONE (10:00)
[2016-09-06 10:20] LABS: Basophils % (Manual) 0 % (0.0-1.8); Blastocytes % (Manual) 0 %
[2016-09-06 10:21] LABS: Diff Status Complete; Platelet Estimate Consistent w Auto
[2016-09-06] MEDS: ROCEPHIN/NS 1 GM/50 ML 1 GM/50 ML BAG IV SCH (11:15)
[2016-09-06] MEDS: ZESTRIL PO SCH (11:16)
[2016-09-06] MEDS: COREG PO SCH ×2 (11:16→22:39)
[2016-09-06] MEDS: PROTONIX PO SCH (11:16)
--- NOTE | 2016-09-06 11:25 | Progress Note ---
Assessment and Plan Assessment and plan: Sepsis. We will continue to follow urine and blood cultures. Trend lactic acid levels. Continue IV antibiotics. UTI. Continuing IV antibiotics and follow-up urine cultures. Acute chest pain. Continue to follow cardiac isoenzymes. Cardiology following. Stress test this a.m. Follow-up echocardiogram. Obesity. Continue nutrition counseling and weight loss. Hypertension. Continue antihypertensive medications. History Interval history: No new issues overnight. Hospitalist Physical - Constitutional Vitals: Temp Pulse Resp BP Pulse Ox 97.7 F 64 20 97/46 100 09/06/16 04:00 09/06/16 08:35 09/06/16 04:00 09/06/16 04:00 09/06/16 04:00 General appearance: Present: no acute distress, well-nourished, obese - EENT Eyes: Present: PERRL, EOM intact ENT: hearing intact, clear oral mucosa, dentition normal - Neck Neck: Present: supple, normal ROM - Respiratory Respiratory effort: normal Respiratory: bilateral: CTA - Cardiovascular Rhythm: regular Heart Sounds: Present: S1 & S2. Absent: gallop, rub - Extremities Extremities: no ischemia, No edema, Full ROM - Abdominal General gastrointestinal: soft, non-tender, non-distended, normal bowel sounds - Integumentary Integumentary: Present: clear, warm, dry - Neurologic Neurologic: CNII-XII intact, moves all extremities Results - Labs CBC & Chem 7: 09/06/16 05:15 09/06/16 05:15 Labs: Laboratory Last Values WBC 5.4 K/mm3 (4.5-11.0) 09/06/16 05:15 RBC 3.92 M/mm3 (3.65-5.03) 09/06/16 05:15 Hgb 10.6 gm/dl (10.1-14.3) 09/06/16 05:15 Hct 33.8 % (30.3-42.9) 09/06/16 05:15 MCV 86 fl (79-97) 09/06/16 05:15 MCH 27 pg (28-32) L 09/06/16 05:15 MCHC 32 % (30-34) 09/06/16 05:15 RDW 15.2 % (13.2-15.2) 09/06/16 05:15 Plt Count 220 K/mm3 (140-440) 09/06/16 05:15 Lymph % (Auto) 6.7 % (13.4-35.0) L 09/04/16 05:26 [place] % (Auto) [employer] 09/06/16 05:15 Eos % (Auto) 0.0 % (0.0-4.3) 09/04/16 05:26 Baso % (Auto) 0.3 % (0.0-1.8) 09/04/16 05:26 Lymph # 1.0 K/mm3 (1.2-5.4) L 09/04/16 05:26 [place] # 1.7 K/mm3 (0.0-0.8) H 09/04/16 05:26 Eos # 0.0 K/mm3 (0.0-0.4) 09/04/16 05:26 Baso # 0.0 K/mm3 (0.0-0.1) 09/04/16 05:26 Add Manual Diff Complete 09/06/16 05:15 Total Counted 100 09/06/16 05:15 Seg Neutrophils % 81.5 % (40.0-70.0) H 09/04/16 05:26 Seg Neuts % (Manual) 48.0 % (40.0-70.0) 09/06/16 05:15 Band Neutrophils % 0 % 09/06/16 05:15 Lymphocytes % (Manual) 35.0 % (13.4-35.0) 09/06/16 05:15 Reactive Lymphs % (Man) 0 % 09/06/16 05:15 Monocytes % (Manual) 15.0 % (0.0-7.3) H 09/06/16 05:15 Eosinophils % (Manual) 2.0 % (0.0-4.3) 09/06/16 05:15 Basophils % (Manual) 0 % (0.0-1.8) 09/06/16 05:15 Metamyelocytes % 0 % 09/06/16 05:15 Myelocytes % 0 % 09/06/16 05:15 Promyelocytes % 0 % 09/06/16 05:15 Blast Cells % 0 % 09/06/16 05:15 Nucleated RBC % Not Reportable 09/06/16 05:15 Seg Neutrophils # 12.1 K/mm3 (1.8-7.7) H 09/04/16 05:26 Seg Neutrophils # Man 2.6 K/mm3 (1.8-7.7) 09/06/16 05:15 Band Neutrophils # 0.0 K/mm3 09/06/16 05:15 Lymphocytes # (Manual) 1.9 K/mm3 (1.2-5.4) 09/06/16 05:15 Abs React Lymphs (Man) 0.0 K/mm3 09/06/16 05:15 Monocytes # (Manual) 0.8 K/mm3 (0.0-0.8) 09/06/16 05:15 Eosinophils # (Manual) 0.1 K/mm3 (0.0-0.4) 09/06/16 05:15 Basophils # (Manual) 0.0 K/mm3 (0.0-0.1) 09/06/16 05:15 Metamyelocytes # 0.0 K/mm3 09/06/16 05:15 Myelocytes # 0.0 K/mm3 09/06/16 05:15 Promyelocytes # 0.0 K/mm3 09/06/16 05:15 Blast Cells # 0.0 K/mm3 09/06/16 05:15 WBC Morphology Not Reportable 09/06/16 05:15 Hypersegmented Neuts Not Reportable 09/06/16 05:15 Hyposegmented Neuts Not Reportable 09/06/16 05:15 Hypogranular Neuts Not Reportable 09/06/16 05:15 Smudge Cells Not Reportable 09/06/16 05:15 Toxic Granulation Not Reportable 09/06/16 05:15 Toxic Vacuolation Not Reportable 09/06/16 05:15 Dohle Bodies Not Reportable 09/06/16 05:15 Pelger-Huet Anomaly Not Reportable 09/06/16 05:15 Natalie Rods Not Reportable 09/06/16 05:15 Platelet Estimate Consistent w auto 09/06/16 05:15 Clumped Platelets Not Reportable 09/06/16 05:15 Plt Clumps, EDTA Not Reportable 09/06/16 05:15 Large Platelets Not Reportable 09/06/16 05:15 Giant Platelets Not Reportable 09/06/16 05:15 Platelet Satelliting Not Reportable 09/06/16 05:15 Plt Morphology Comment Not Reportable 09/06/16 05:15 RBC Morphology Not Reportable 09/06/16 05:15 Dimorphic RBCs Not Reportable 09/06/16 05:15 Polychromasia Not Reportable 09/06/16 05:15 Hypochromasia Not Reportable 09/06/16 05:15 Poikilocytosis Not Reportable 09/06/16 05:15 Anisocytosis Not Reportable 09/06/16 05:15 Microcytosis Not Reportable 09/06/16 05:15 Macrocytosis Not Reportable 09/06/16 05:15 Spherocytes Not Reportable 09/06/16 05:15 Pappenheimer Bodies Not Reportable 09/06/16 05:15 Sickle Cells Not Reportable 09/06/16 05:15 Target Cells Not Reportable 09/06/16 05:15 Tear Drop Cells Not Reportable 09/06/16 05:15 Ovalocytes Not Reportable 09/06/16 05:15 Helmet Cells Not Reportable 09/06/16 05:15 [place] Bodies Not Reportable 09/06/16 05:15 [place] Rings Not Reportable 09/06/16 05:15 [place] Cells Not Reportable 09/06/16 05:15 Bite Cells Not Reportable 09/06/16 05:15 Crenated Cell Not Reportable 09/06/16 05:15 Elliptocytes Not Reportable 09/06/16 05:15 Acanthocytes (Spur) Not Reportable 09/06/16 05:15 Rouleaux Not Reportable 09/06/16 05:15 Hemoglobin C Crystals Not Reportable 09/06/16 05:15 Schistocytes Not Reportable 09/06/16 05:15 Malaria parasites Not Reportable 09/06/16 05:15 [place]iven Bodies Not Reportable 09/06/16 05:15 Hem Pathologist Commnt No 09/06/16 05:15 Sodium 140 mmol/L (137-145) 09/06/16 05:15 Potassium 3.9 mmol/L (3.6-5.0) 09/06/16 05:15 Chloride 102.7 mmol/L (98-107) 09/06/16 05:15 Carbon Dioxide 27 mmol/L (22-30) 09/06/16 05:15 Anion Gap 14 mmol/L 09/06/16 05:15 BUN 8 mg/dL (7-17) 09/06/16 05:15 Creatinine 0.6 mg/dL (0.7-1.2) L 09/06/16 05:15 Estimated GFR > 60 ml/min 09/06/16 05:15 BUN/Creatinine Ratio 13.33 % 09/06/16 05:15 Glucose 99 mg/dL (65-100) 09/06/16 05:15 Lactic Acid 0.9 mmol/L (0.7-2.0) 09/03/16 21:16 Calcium 9.0 mg/dL (8.4-10.2) 09/06/16 05:15 Troponin T < 0.010 ng/mL (0.00-0.029) 09/04/16 00:36 Urine Color Yellow (Yellow) 09/03/16 18:15 Urine Turbidity Cloudy (Clear) 09/03/16 18:15 Urine pH 7.0 (5.0-7.0) 09/03/16 18:15 Ur Specific [place] 1.014 (1.003-1.030) 09/03/16 18:15 Urine Protein 100 mg/dl mg/dL (Negative) 09/03/16 18:15 Urine Glucose (UA) Neg mg/dL (Negative) 09/03/16 18:15 Urine Ketones Tr mg/dL (Negative) 09/03/16 18:15 Urine Blood Mod (Negative) 09/03/16 18:15 Urine Nitrite Neg (Negative) 09/03/16 18:15 Urine Bilirubin Neg (Negative) 09/03/16 18:15 Urine Urobilinogen 2.0 mg/dL (<2.0) 09/03/16 18:15 Ur Leukocyte Esterase Lg (Negative) 09/03/16 18:15 Urine WBC (Auto) > 182.0 /HPF (0.0-6.0) H 09/03/16 18:15 Urine RBC (Auto) 42.0 /HPF (0.0-6.0) 09/03/16 18:15 U Epithel Cells (Auto) 3.0 /HPF (0-13.0) 09/03/16 18:15 Urine Bacteria (Auto) 1+ /HPF (Negative) 09/03/16 18:15 Urine WBC Clumps 3+ /HPF 04/21/17 18:15 Urine Mucus 1+ /HPF 09/03/16 18:15
--- NOTE | 2016-09-06 11:30 | Admit Criteria Form ---
Admission Criteria Documentation: SEPSIS and OTHER FEBRILE ILLNESS, W/O FOCAL INFECTION Clinical Indications for Admission to Inpatient Care ( Place 'X' for any and all applicable criteria): Admission is indicated for ANY ONE of the following (1)(2)(3)(4): [X] I. Bacteremia [ ]II. Suspected or identified specific infection requiring hospitalization (eg, meningitis, endocarditis) [ ]III. Hemodynamic instability [ ]IV. Altered mental status [ ]V. Failure or unavailability of outpatient antimicrobial treatment [ ]. Hypoxemia [ ]VII. Seizures [ ]VIII. High-risk febrile neutropenia [ ]IX. Need for parenteral antibiotic in patient who is likely to abuse vascular access device (eg, injection drug user) [A](7) [ ]X. Temperature greater than 104.9 degrees F (40.5 degrees C) (oral) [ ]XI. Inpatient admission required rather than observation care because of ANY ONE of the following: [ ]1) Specific infection identified that is too severe for outpatient treatment or observation care trial [ ]2) Metabolic disorder (eg, hypoglycemia, hyperglycemia, metabolic acidosis) that is severe or persistent [ ]3) Temperature greater than 103.1 degrees F (39.5 degrees C) ( oral) that is not responsive to observation care treatment [ ]4) IV fluid to replace significant ongoing (eg, for over 24 hours) losses (> 3 L/m2 per day) [ ]5) Supplemental oxygen or respiratory treatments for over 24 hours that is performable only in acute inpatient setting [ ]6) Parenteral nutrition regimen need that must be implemented on inpatient basis [ ]7) Strict or protective (eg, laminar flow) isolation [ ]8) Other condition, treatment or monitoring requiring inpatient admission Extended stay beyond goal length of stay may be needed for(1)(3) [ ]a) Sepsis or septic shock(22) [ ]b) Positive blood cultures [ ]c) Insufficient oral intake [ ]d) High-risk febrile neutropenia(29)(30) [ ]e) Continued fever and clinical instability [ ]f) Clinically active comorbid illness (e.g,heart failure, renal failure , diabetes) The original [facility] content created by Seun Mora has been revised. The portions of the content which have been revised are identified through the use of italic text or in bold, and Seun Mora has neither reviewed nor approved the modified material. All other unmodified content is copyright [facility]. Please see references footnoted in the original [facility] edition 2016 Admission Criteria Met: Yes
--- NOTE | 2016-09-06 13:55 | Treadmill Report ---
THALLIUM STRESS TEST LEFT VENTRICLE: Left ventricular chamber size is within normal. Perfusion study demonstrates homogeneous uptake of the tracer in all segments, no significant defects identified. Gated analysis demonstrates normal left ventricular systolic function. Ejection fraction 57%. CONCLUSION: Normal myocardial perfusion study. JOB# [id number] CA/NTS
--- NOTE | 2016-09-06 13:57 | Progress Note ---
Assessment and Plan - Patient Problems (1) Chest pain Current Visit: No Status: Acute Qualifiers: Chest pain type: precordial chest pain Qualified Code(s): R07.2 - Precordial pain Plan to address problem: Patient presented with atypical chest pain in the setting of generalized aches, fever 101 and an underlying UTI. Persantine thallium stress test is negative, no further cardiac workup is indicated. Subjective Date of service: 09/06/16 Interval history: Patient is comfortable, no further cardiac complaints. A Persantine thallium stress test done today was normal. Objective Vital Signs Temp Pulse Pulse Resp BP BP Pulse Ox 09/06/16 09:22 81 132/71 09/06/16 09:21 82 128/70 09/06/16 09:20 83 122/76 09/06/16 09:19 84 132/69 09/06/16 09:18 85 132/81 09/06/16 09:17 87 122/84 09/06/16 08:45 66 130/75 09/06/16 08:35 64 09/06/16 04:00 97.7 F 65 20 97/46 100 09/06/16 00:00 97.9 F 73 20 93/51 99 09/05/16 22:09 88 125/58 09/05/16 20:00 99.3 F 88 20 125/58 99 09/05/16 16:00 99.5 F 83 18 92/59 99 - Physical Examination General: No Apparent Distress HEENT: Positive: PERRL Neck: Positive: neck supple Cardiac: Positive: Reg Rate and Rhythm Lungs: Positive: Decreased Breath Sounds Neuro: Positive: Grossly Intact Abdomen: Positive: Soft Skin: Positive: Clear Extremities: Absent: edema - Labs and Meds CBC 09/06/16 Range/Units 05:15 WBC 5.4 (4.5-11.0) K/mm3 RBC 3.92 (3.65-5.03) M/mm3 Hgb 10.6 (10.1-14.3) gm/dl Hct 33.8 (30.3-42.9) % Plt Count 220 (140-440) K/mm3 Comprehensive Metabolic Panel 09/06/16 Range/Units 05:15 Sodium 140 (137-145) mmol/L Potassium 3.9 (3.6-5.0) mmol/L Chloride 102.7 (98-107) mmol/L Carbon Dioxide 27 (22-30) mmol/L BUN 8 (7-17) mg/dL Creatinine 0.6 L (0.7-1.2) mg/dL Glucose 99 (65-100) mg/dL Calcium 9.0 (8.4-10.2) mg/dL
[2016-09-06] MEDS: NORCO 5/325 PO PRN (22:42)
[2016-09-07 05:48] LABS: Hematocrit 34.5 % (30.3-42.9); Hemoglobin 10.9 gm/dl (10.1-14.3); Mean Corpuscular HGB Conc 32 % (30-34); Mean Corpuscular Hemoglobin 27 pg (28-32); Mean Corpuscular Volume 86 fl (79-97); Platelet Count 255 K/mm3 (140-440); Red Blood Count 4.04 M/mm3 (3.65-5.03); Red Cell Distribution Width 15.4 % (13.2-15.2); White Blood Count 4.7 K/mm3 (4.5-11.0)
[2016-09-07] MEDS: HEPARIN SUB-Q SCH ×2 (05:51→15:08)
[2016-09-07 06:01] LABS: Anion Gap 18 mmol/L; BUN/Creatinine Ratio 13.33; Blood Urea Nitrogen 8 mg/dL (7-17); Calcium 8.9 mg/dL (8.4-10.2); Carbon Dioxide 25 mmol/L (22-30); Glucose 102 mg/dL (65-100); Potassium 4.1 mmol/L (3.6-5.0); Sodium 140 mmol/L (137-145)
--- NOTE | 2016-09-07 08:22 | Discharge Summary ---
Providers - Providers Date of Admission: 09/03/16 22:53 Date of discharge: 09/07/16 Attending physician: KIRSTEN ADAMS Primary care physician: [employer] Hospitalization Reason for admission: uti, cp Condition: Serious Hospital course: This is a 55-year-old AA female with a history of HTN, open heart surgery for coarctation of the aorta who presented for evaluation of chest pain. The patient reported constant left-sided chest pain, pressure-like in quality, currently 10/10 in severity, and associated with suprapubic abdominal pain of same duration. She stated that her abdominal pain has been moderate to severe, cramping in quality, also constant the past 2 days, and associated with dysuria and multiple episodes of nonbilious vomiting. The patient also c/o of fever and chills, but denies cough, dyspnea, hemoptysis. She was noted to have significant urinary tract infection along with the fever and tachycardia and was admitted for sepsis with Uti. Patient was treated with IV antibiotics. Blood cultures found to be negative. Patient was seen by cardiology in consultation and underwent workup for chest pain. Stress thallium was completed which was found to be negative. Patient's leukocytosis and urinary tract infection resolved. Patient was felt to have received maximal hospital benefit. Patient will be discharged home and is to follow-up with her PCP. Dedicated discharge time 32 minutes. Disposition: DISCHARGED TO HOME OR SELFCARE Time spent for discharge: 32 - Discharge Diagnoses (1) GERD (gastroesophageal reflux disease) Status: Acute Qualifiers: Esophagitis presence: E (2) Acute UTI (urinary tract infection) Status: Acute (3) Acute chest pain Status: Acute (4) Acute suprapubic pain Status: Acute (5) Hyperglycemia Status: Acute (6) Sepsis Status: Acute Qualifiers: Sepsis type: sepsis due to unspecified organism Qualified Code(s): A41.9 - Sepsis, unspecified organism Core Measure Documentation - Palliative Care Palliative Care/ Comfort Measures: Not Applicable - Core Measures Any of the following diagnoses?: none Exam - Constitutional Vitals: Temp Pulse Resp BP Pulse Ox 97.9 F 93 H 18 138/78 94 09/07/16 04:33 09/07/16 04:33 09/07/16 04:33 09/07/16 04:33 09/07/16 04:33 General appearance: Present: no acute distress, well-nourished - EENT Eyes: Present: PERRL ENT: hearing intact, clear oral mucosa - Neck Neck: Present: supple, normal ROM - Respiratory Respiratory effort: normal Respiratory: bilateral: CTA - Cardiovascular Heart Sounds: Present: S1 & S2. Absent: rub, click - Extremities Extremities: pulses symmetrical, No edema Peripheral Pulses: within normal limits - Abdominal General gastrointestinal: Present: soft, non-tender, non-distended, normal bowel sounds Female genitourinary: Present: normal - Integumentary Integumentary: Present: clear, warm, dry - Musculoskeletal Musculoskeletal: gait normal, strength equal bilaterally - Psychiatric Psychiatric: appropriate mood/affect, intact judgment & insight - Neurologic Neurologic: CNII-XII intact, moves all extremities Plan Activity: no restrictions Weight Bearing Status: Full Weight Bearing Diet: low fat Follow up with: PRIMARY CAREMD [Primary Care Provider] - 3-5 Days LESA AMBROCIO MD [Staff Physician] - 7 Days Prescriptions: Carvedilol [Coreg] 3.125 mg PO BID #60 tablet Cefuroxime Axetil [Ceftin] 500 mg PO Q12H #10 tablet HYDROcodone/APAP 5-325 [[place] 5-325 mg TAB] 1 each PO Q6H PRN #12 tablet PRN Reason: Pain, Moderate (4-6) Lisinopril [Zestril TAB] 2.5 mg PO QDAY #30 tablet Pantoprazole [Protonix TAB] 40 mg PO DAILY #30 tablet
[2016-09-07 08:45] VITALS: BP 171/77
[2016-09-07] MEDS: NORCO 5/325 PO PRN ×2 (09:43→15:08)
[2016-09-07] MEDS: PROTONIX PO SCH (09:44)
[2016-09-07] MEDS: ZESTRIL PO SCH (09:44)
[2016-09-07] MEDS: ROCEPHIN/NS 1 GM/50 ML 1 GM/50 ML BAG IV SCH (09:44)
[2016-09-07] MEDS: COREG PO SCH (09:44)
[2016-09-07 09:57] LABS: Basophils % (Manual) 0 % (0.0-1.8); Blastocytes % (Manual) 0 %; Eosinophils % (Manual) 0 % (0.0-4.3)
[2016-09-07 09:58] LABS: Diff Status Complete; RBC Morphology Normal
--- NOTE | 2016-09-07 11:09 | Progress Note ---
Assessment and Plan Chest pain, atypical Persantine thallium stress test is negative this admission Hypertension Obese No further cardiac workup is indicated. Stable, cardiac childs, for discharge home today. Subjective Date of service: 09/07/16 Interval history: Patient has no complaints. She denies chest pain. Objective Vital Signs Temp Pulse Pulse Pulse Resp Resp BP 09/07/16 09:44 80 171/77 09/07/16 08:44 97.9 F 80 18 09/07/16 04:33 97.9 F 93 H 18 09/07/16 00:12 97.6 F 75 18 09/06/16 23:42 18 09/06/16 22:42 18 09/06/16 22:39 76 134/61 09/06/16 22:00 75 18 09/06/16 20:43 18 09/06/16 20:27 75 09/06/16 16:00 97.9 F 74 20 09/06/16 12:00 97.4 F L 70 20 BP BP Pulse Ox 09/07/16 09:44 09/07/16 08:44 171/77 97 09/07/16 04:33 138/78 94 09/07/16 00:12 112/58 97 09/06/16 23:42 09/06/16 22:42 09/06/16 22:39 09/06/16 22:00 97 09/06/16 20:43 09/06/16 20:27 09/06/16 16:00 153/67 94 09/06/16 12:00 147/74 97 - Physical Examination General: No Apparent Distress HEENT: Positive: PERRL Neck: Positive: neck supple Cardiac: Positive: Reg Rate and Rhythm Lungs: Positive: Decreased Breath Sounds Neuro: Positive: Grossly Intact - Labs and Meds CBC 09/07/16 Range/Units 05:08 WBC 4.7 (4.5-11.0) K/mm3 RBC 4.04 (3.65-5.03) M/mm3 Hgb 10.9 (10.1-14.3) gm/dl Hct 34.5 (30.3-42.9) % Plt Count 255 (140-440) K/mm3 Comprehensive Metabolic Panel 09/07/16 Range/Units 05:08 Sodium 140 (137-145) mmol/L Potassium 4.1 (3.6-5.0) mmol/L Chloride 101.0 (98-107) mmol/L Carbon Dioxide 25 (22-30) mmol/L BUN 8 (7-17) mg/dL Creatinine 0.6 L (0.7-1.2) mg/dL Glucose 102 H (65-100) mg/dL Calcium 8.9 (8.4-10.2) mg/dL
== END 2016-09-07 15:19 | disposition home or self-care (01) | DRG 872 ==
LOC: ED 17:38 → 4A 22:53
PROVIDERS: ADMIT Internal Medicine; ATTEND Hospitalist
PROC: 4A02XM4 Measurement of Cardiac Total Activity, External Approach (ICD-10-PCS; principal; 2016-09-05)
DX: A41.9 Sepsis, unspecified organism (principal); N39.0 Urinary tract infection, site not specified; Q25.1 Coarctation of aorta; Z68.43 Body mass index [BMI] 50.0-59.9, adult; I10 Essential (primary) hypertension; R07.89 Other chest pain; E66.01 Morbid (severe) obesity due to excess calories; R73.9 Hyperglycemia, unspecified; K21.9 Gastro-esophageal reflux disease without esophagitis; Z98.51 Tubal ligation status; Z90.49 Acquired absence of other specified parts of digestive tract; Z90.89 Acquired absence of other organs; Z83.3 Family history of diabetes mellitus; Z82.49 Family history of ischemic heart disease and other diseases of the circulatory system
CPT/HCPCS: 36415; 71020; 78452; 80048; 81001; 82140; 84484; 85007; 85025; 87040; 87086; 93005; 93010; 93017; 94760; 96374; 96375; A9502; C9113; J0696; J1644; J2405; J2785; J3010; J7030

== ENCOUNTER 2017-07-28 17:55 | Emergency (ER) | payer SELFPAY ==
[2017-07-28] MEDS ORDERED: TYLENOL PO ONE (19:27)
--- NOTE | 2017-07-28 19:29 | Emergency Department Report ---
Chief Complaint: Extremity Problem,Nontraumatic Stated Complaint: LEG PAIN Time Seen by Provider: 07/28/17 18:59 - HPI History of Present Illness: The patient is a 56-year-old female presents for evaluation of left knee pain. The patient reports exacerbation of chronic knee pain. She states that her current episode of the pain began after a fall 1 week ago. Her pain has been mild to moderate in severity, exacerbated with ambulation or weightbearing, aching in quality. She denies fever, chills, night sweats, redness, swelling, or color change to the knee or distal lower sternum. - Exam Vital Signs: Vital Signs 07/28/17 18:02 Temperature 97.6 F Pulse Rate 105 H Respiratory 16 Rate Blood Pressure 148/63 O2 Sat by Pulse 97 Oximetry MSE screening note: Focused history and physical exam performed. Due to findings the following was ordered: ED Disposition for MSE Condition: Stable
--- NOTE | 2017-07-28 20:15 | Emergency Department Report ---
ED Lower Extremity HPI - General Chief Complaint: Extremity Problem,Nontraumatic Stated Complaint: LEG PAIN Time Seen by Provider: 07/28/17 18:59 Source: patient Mode of arrival: Ambulatory Limitations: No Limitations - History of Present Illness Initial Comments: The patient is a 56-year-old female presents for evaluation of left knee pain. The patient reports exacerbation of chronic knee pain. She states that her current episode of the pain began after a fall 1 week ago. Her pain has been mild to moderate in severity, exacerbated with ambulation or weightbearing, aching in quality. She denies fever, chills, night sweats, redness, swelling, or color change to the knee or distal lower extremity. Patient has a past medical history of hypertension congestive heart failure migraines, anemia, stomach ulcers, fibroids, diverticulitis. Patient reports she has not been taking her chronic medication for over a month. She's had multiple falls in the last 2 months. Onset/Timin (after a fall) -: week(s) (1) Injury: Knee: Left Place: home Severity scale (0 -10): 4 Improves With: nothing Worsens With: weight bearing, movement Context: fall (multiple) - Related Data Home Medications Medication Instructions Recorded Confirmed Last Taken Ferrous Sulfate [Feosol 325 MG tab] 325 mg PO QDAY 09/04/16 09/04/16 Unknown Previous Rx's Medication Instructions Recorded Last Taken Type Cefuroxime Axetil [Ceftin] 500 mg PO Q12H #10 tablet 09/07/16 Unknown Rx HYDROcodone/APAP 5-325 [[place] 1 each PO Q6H PRN #12 tablet 09/07/16 Unknown Rx 5-325 mg TAB] Pantoprazole [Protonix TAB] 40 mg PO DAILY #30 tablet 09/07/16 Unknown Rx Aspirin [Aspirin BABY CHEW TAB] 81 mg PO QDAY #30 tab.chew 07/28/17 Unknown Rx Carvedilol [Coreg] 3.125 mg PO BID #60 tablet 07/28/17 Unknown Rx Ibuprofen [Motrin 800 MG tab] 800 mg PO Q8H PRN #45 tablet 07/28/17 Unknown Rx Lisinopril [Zestril TAB] 2.5 mg PO QDAY #30 tablet 07/28/17 Unknown Rx Allergies Allergy/AdvReac Type Severity Reaction Status Date / Time No Known Allergies Allergy Verified 02/08/15 16:03 ED Review of Systems ROS: Stated complaint: LEG PAIN Other details as noted in HPI Constitutional: denies: chills, fever Eyes: denies: eye pain, eye discharge, vision change ENT: denies: ear pain, throat pain Respiratory: denies: cough, shortness of breath, wheezing Cardiovascular: denies: chest pain, palpitations Endocrine: no symptoms reported Gastrointestinal: denies: abdominal pain, nausea, diarrhea Genitourinary: denies: urgency, dysuria, discharge Musculoskeletal: arthralgia (left knee). denies: back pain, joint swelling Skin: denies: rash, lesions Neurological: denies: headache, weakness, paresthesias Psychiatric: denies: anxiety, depression Hematological/Lymphatic: denies: easy bleeding, easy bruising ED Past Medical Hx - Past Medical History Hx Hypertension: Yes Hx Congestive Heart Failure: Yes Hx Diabetes: No Hx GERD: Yes Hx Headaches / Migraines: Yes Hx Asthma: No Hx COPD: No Hx HIV: No Additional medical history: ANEMIA,STOMACH ULCER,FIBROID,DIVERTICULITIS. Obesity - Surgical History Past Surgical History?: Yes Hx Open Heart Surgery: Yes (1972 coarctation of aorta) Hx Cholecystectomy: Yes Additional Surgical History: TUBAL LIGATION. TONSILLECTOMY - Social History Smoking Status: Never Smoker Substance Use Type: None - Medications Home Medications: Home Medications Medication Instructions Recorded Confirmed Last Taken Type Ferrous Sulfate [Feosol 325 MG tab] 325 mg PO QDAY 09/04/16 09/04/16 Unknown History Cefuroxime Axetil [Ceftin] 500 mg PO Q12H #10 tablet 09/07/16 Unknown Rx HYDROcodone/APAP 5-325 [[place] 1 each PO Q6H PRN #12 tablet 09/07/16 Unknown Rx 5-325 mg TAB] Pantoprazole [Protonix TAB] 40 mg PO DAILY #30 tablet 09/07/16 Unknown Rx Aspirin [Aspirin BABY CHEW TAB] 81 mg PO QDAY #30 tab.chew 07/28/17 Unknown Rx Carvedilol [Coreg] 3.125 mg PO BID #60 tablet 07/28/17 Unknown Rx Ibuprofen [Motrin 800 MG tab] 800 mg PO Q8H PRN #45 tablet 07/28/17 Unknown Rx Lisinopril [Zestril TAB] 2.5 mg PO QDAY #30 tablet 07/28/17 Unknown Rx ED Physical Exam - General Limitations: No Limitations General appearance: alert, in no apparent distress - Head Head exam: Present: atraumatic, normocephalic - Eye Eye exam: Present: normal appearance - ENT ENT exam: Present: mucous membranes moist - Respiratory Respiratory exam: Present: normal lung sounds bilaterally. Absent: respiratory distress - Cardiovascular Cardiovascular Exam: Present: regular rate, normal rhythm. Absent: systolic murmur, diastolic murmur, rubs, gallop - Extremities Exam Extremities exam: Present: full ROM - Expanded Lower Extremity Exam Left Hip exam: Present: normal inspection, full ROM Upper Leg exam: Present: normal inspection, full ROM Knee exam: Present: normal inspection, full ROM, tenderness Lower Leg exam: Present: normal inspection, full ROM Ankle exam: Present: swelling (chronic) Foot/Toe exam: Present: normal inspection, full ROM ED Course Vital Signs 07/28/17 07/28/17 18:02 19:32 Temperature 97.6 F Pulse Rate 105 H Respiratory 16 18 Rate Blood Pressure 148/63 O2 Sat by Pulse 97 Oximetry ED Lower Extremity MDM - Radiology Data FINDINGS: Exam was performed portably with patient in wheelchair due to patient body habitus. There is infrapatellar and mild prepatellar soft tissue reticulation and free tibial mild soft tissue prominence. There is no fracture or dislocation identified. There is patellofemoral degenerative arthritis and medial knee joint space narrowing with femoral condylar squaring and tibial spine blunting. There is mild medial femoral condylar osteophytic spurring. IMPRESSION: No fracture or dislocation. Pre tibial, prepatellar and infrapatellar soft tissue reticulation. Mild medial compartment osteoarthritis and patellofemoral osteoarthritis. Transcribed By: JUAN CARLOS Dictated By: SANTOS HARRIS Electronically Authenticated By: SANTOS HARRIS Signed Date/Time: 07/28/17 [id number] - Medical Decision Making Patient has been evaluated by this provider as well as Dr. Palmer. Patient was given Tylenol 650 mg for pain. Patient had a left knee x-ray. Which reported mouth and medial compartment osteoarthritis and patellofemoral osteo- arthritis. I discussed patient that give her prescription for ibuprofen 800 mg taken every 8 hours as needed for pain. I discussed the patient that she needs to lose weight as this will help with her arthritis. I also discussed with patient that she has a history of heart failure and hypertension and is not taking her medications. I discussed with her I will give her 30 days with her medication and she is to follow-up with [facility]. Patient verbalized understanding. Critical care attestation.: If time is entered above; I have spent that time in minutes in the direct care of this critically ill patient, excluding procedure time. ED Disposition Clinical Impression: Osteoarthritis of left knee Qualifiers: Osteoarthritis type: primary Qualified Code(s): M17.12 - Unilateral primary osteoarthritis, left knee Disposition: TO HOME OR SELFCARE Is pt being admited?: No Does the pt Need Aspirin: No Condition: Stable Instructions: Osteoarthritis (ED) Additional Instructions: Please take medication as prescribed. It is very important for you to follow up with [facility] to have severe chronic disease management care. Prescriptions: Aspirin [Aspirin BABY CHEW TAB] 81 mg PO QDAY #30 tab.chew Carvedilol [Coreg] 3.125 mg PO BID #60 tablet Ibuprofen [Motrin 800 MG tab] 800 mg PO Q8H PRN #45 tablet PRN Reason: Pain Lisinopril [Zestril TAB] 2.5 mg PO QDAY #30 tablet Referrals: PRIMARY CARE,MD [Primary Care Provider] - 3-5 Days [facility] [Provider Group] - 3-5 Days [facility] [Provider Group] - 3-5 Days
--- NOTE | 2017-07-28 22:23 | XRay Report ---
FINAL REPORT EXAM: XR KNEE 3V LT HISTORY: left knee pain TECHNIQUE: Four views left knee Comparison: None FINDINGS: Exam was performed portably with patient in wheelchair due to patient body habitus. There is infrapatellar and mild prepatellar soft tissue reticulation and free tibial mild soft tissue prominence. There is no fracture or dislocation identified. There is patellofemoral degenerative arthritis and medial knee joint space narrowing with femoral condylar squaring and tibial spine blunting. There is mild medial femoral condylar osteophytic spurring. IMPRESSION: No fracture or dislocation. Pre tibial, prepatellar and infrapatellar soft tissue reticulation. Mild medial compartment osteoarthritis and patellofemoral osteoarthritis.
[2017-07-28] MEDS ORDERED: MOTRIN PO ONE (22:45)
[2017-07-28 23:45] VITALS: BP 143/67
== END 2017-07-28 23:47 | disposition home or self-care (01) ==
LOC: ED 17:55
DX: M17.12 Unilateral primary osteoarthritis, left knee (principal); I10 Essential (primary) hypertension; G43.909 Migraine, unspecified, not intractable, without status migrainosus

== ENCOUNTER 2017-12-16 15:01 | Emergency (ER) | payer SELFPAY ==
[2017-12-16] MEDS ORDERED: ULTRAM PO ONE (16:27)
[2017-12-16] MEDS ORDERED: ZOFRAN ODT PO ONE (16:27)
[2017-12-16 17:21] LABS: Bacteria,Urine 2+ /HPF (Negative); Bilirubin,Urine NEG (Negative); Blood,Urine LG (Negative); Color,Urine Yellow (Yellow); Mucus,Urine 3+ /HPF; Urobilinogen,Urine < 2.0 mg/dL (<2.0)
[2017-12-16 17:22] LABS: RBC,Urine > 182.0 /HPF (0.0-6.0); WBC,Urine > 182.0 /HPF (0.0-6.0)
--- NOTE | 2017-12-16 17:42 | Emergency Department Report ---
ED Abdominal Pain HPI - General Chief Complaint: Upper Respiratory Infection Stated Complaint: CHILLS/NAUSEA Time Seen by Provider: 12/16/17 16:15 Source: patient Mode of arrival: Ambulatory Limitations: Physical Limitation - History of Present Illness Initial Comments: Patient is a 57-year-old black female who is complaining of some nausea and chills for the past 2 days. Patient also complaining of dysuria and urinary frequency as well. Patient states is some mild discomfort in suprapubic region as well as her lower back. Patient's denies abnormal vaginal bleeding cough cold congestion at this time. Severity scale (0 -10): 9 - Related Data Home Medications Medication Instructions Recorded Confirmed Last Taken Ferrous Sulfate [Feosol 325 MG tab] 325 mg PO QDAY 09/04/16 09/04/16 Unknown Previous Rx's Medication Instructions Recorded Last Taken Type Cefuroxime Axetil [Ceftin] 500 mg PO Q12H #10 tablet 09/07/16 Unknown Rx HYDROcodone/APAP 5-325 [[place] 1 each PO Q6H PRN #12 tablet 09/07/16 Unknown Rx 5-325 mg TAB] Pantoprazole [Protonix TAB] 40 mg PO DAILY #30 tablet 09/07/16 Unknown Rx Aspirin [Aspirin BABY CHEW TAB] 81 mg PO QDAY #30 tab.chew 07/28/17 Unknown Rx Carvedilol [Coreg] 3.125 mg PO BID #60 tablet 07/28/17 Unknown Rx Ibuprofen [Motrin 800 MG tab] 800 mg PO Q8H PRN #45 tablet 07/28/17 Unknown Rx Lisinopril [Zestril TAB] 2.5 mg PO QDAY #30 tablet 07/28/17 Unknown Rx Levofloxacin [Levaquin TAB] 500 mg PO QDAY #7 tablet 12/16/17 Unknown Rx Phenazopyridine [Pyridium] 100 mg PO TID 2 Days tab 12/16/17 Unknown Rx Promethazine [Phenergan TAB] 25 mg PO Q8HR PRN #10 tab 12/16/17 Unknown Rx traMADol [Ultram] 50 mg PO Q6HR PRN #10 tablet 12/16/17 Unknown Rx Allergies Allergy/AdvReac Type Severity Reaction Status Date / Time No Known Allergies Allergy Verified 02/08/15 16:03 ED Review of Systems ROS: Stated complaint: CHILLS/NAUSEA Other details as noted in HPI Comment: All other systems reviewed and negative ED Past Medical Hx - Past Medical History Hx Hypertension: Yes Hx Congestive Heart Failure: Yes Hx Diabetes: No Hx GERD: Yes Hx Headaches / Migraines: Yes Hx Asthma: No Hx COPD: No Hx HIV: No Additional medical history: ANEMIA,STOMACH ULCER,FIBROID,DIVERTICULITIS. Obesity - Surgical History Hx Open Heart Surgery: Yes (1972 coarctation of aorta) Hx Cholecystectomy: Yes Additional Surgical History: TUBAL LIGATION. TONSILLECTOMY - Social History Smoking Status: Never Smoker Substance Use Type: None - Medications Home Medications: Home Medications Medication Instructions Recorded Confirmed Last Taken Type Ferrous Sulfate [Feosol 325 MG tab] 325 mg PO QDAY 09/04/16 09/04/16 Unknown History Cefuroxime Axetil [Ceftin] 500 mg PO Q12H #10 tablet 09/07/16 Unknown Rx HYDROcodone/APAP 5-325 [[place] 1 each PO Q6H PRN #12 tablet 09/07/16 Unknown Rx 5-325 mg TAB] Pantoprazole [Protonix TAB] 40 mg PO DAILY #30 tablet 09/07/16 Unknown Rx Aspirin [Aspirin BABY CHEW TAB] 81 mg PO QDAY #30 tab.chew 07/28/17 Unknown Rx Carvedilol [Coreg] 3.125 mg PO BID #60 tablet 07/28/17 Unknown Rx Ibuprofen [Motrin 800 MG tab] 800 mg PO Q8H PRN #45 tablet 07/28/17 Unknown Rx Lisinopril [Zestril TAB] 2.5 mg PO QDAY #30 tablet 07/28/17 Unknown Rx Levofloxacin [Levaquin TAB] 500 mg PO QDAY #7 tablet 12/16/17 Unknown Rx Phenazopyridine [Pyridium] 100 mg PO TID 2 Days tab 12/16/17 Unknown Rx Promethazine [Phenergan TAB] 25 mg PO Q8HR PRN #10 tab 12/16/17 Unknown Rx traMADol [Ultram] 50 mg PO Q6HR PRN #10 tablet 12/16/17 Unknown Rx ED Physical Exam - General Limitations: Physical Limitation General appearance: alert, in no apparent distress - Head Head exam: Present: atraumatic, normocephalic - Eye Eye exam: Present: normal appearance - ENT ENT exam: Present: mucous membranes moist - Neck Neck exam: Present: normal inspection - Respiratory Respiratory exam: Present: normal lung sounds bilaterally. Absent: respiratory distress, wheezes, rales, rhonchi - Cardiovascular Cardiovascular Exam: Present: regular rate, normal rhythm. Absent: systolic murmur, diastolic murmur, rubs, gallop - GI/Abdominal GI/Abdominal exam: Present: soft, tenderness (now suprapubic discomfort with CVA tenderness), normal bowel sounds. Absent: distended, guarding, rebound - Extremities Exam Extremities exam: Present: normal inspection - Back Exam Back exam: Present: normal inspection - Neurological Exam Neurological exam: Present: alert, oriented X3 - Psychiatric Psychiatric exam: Present: normal affect, normal mood - Skin Skin exam: Present: warm, dry, intact, normal color. Absent: rash ED Course Vital Signs 12/16/17 12/16/17 15:13 16:36 Temperature 98.3 F Pulse Rate 105 H Respiratory 20 18 Rate Blood Pressure 175/90 O2 Sat by Pulse 97 Oximetry ED Medical Decision Making - Lab Data Lab Results 12/16/17 Range/Units 17:03 Urine Color Yellow (Yellow) Urine Turbidity Cloudy (Clear) Urine pH 5.0 (5.0-7.0) Ur Specific B[place] 1.017 (1.003-1.030) Urine Protein 100 mg/dl (Negative) mg/dL Urine Glucose (UA) Neg (Negative) mg/dL Urine Ketones 20 (Negative) mg/dL Urine Blood Lg (Negative) Urine Nitrite Pos (Negative) Urine Bilirubin Neg (Negative) Urine Urobilinogen < 2.0 (<2.0) mg/dL Ur Leukocyte Esterase Mod (Negative) Urine WBC (Auto) > 182.0 H (0.0-6.0) /HPF Urine RBC (Auto) > 182.0 (0.0-6.0) /HPF U Epithel Cells (Auto) 8.0 (0-13.0) /HPF Urine Bacteria (Auto) 2+ (Negative) /HPF Urine Mucus 3+ /HPF - Medical Decision Making She'll be treated for urinary tract infection be discharged home. Critical care attestation.: If time is entered above; I have spent that time in minutes in the direct care of this critically ill patient, excluding procedure time. ED Disposition Clinical Impression: Acute cystitis Qualifiers: Hematuria presence: with hematuria Qualified Code(s): N30.01 - Acute cystitis with hematuria Disposition: TO HOME OR SELFCARE Is pt being admited?: No Does the pt Need Aspirin: No Condition: Stable Instructions: Urinary Tract Infection in Children (ED) Referrals: PRIMARY CARE, [Primary Care Provider] - 3-5 Days
[2017-12-16 18:05] VITALS: BP 138/69
== END 2017-12-16 18:04 | disposition home or self-care (01) ==
LOC: ED 15:01
DX: N30.01 Acute cystitis with hematuria (principal); I10 Essential (primary) hypertension; I50.9 Heart failure, unspecified; K21.9 Gastro-esophageal reflux disease without esophagitis; G43.909 Migraine, unspecified, not intractable, without status migrainosus; D64.9 Anemia, unspecified; E66.9 Obesity, unspecified; Z98.51 Tubal ligation status; Z90.49 Acquired absence of other specified parts of digestive tract; Z90.89 Acquired absence of other organs; Z79.82 Long term (current) use of aspirin
CPT/HCPCS: 81001; 99283; Q0162